=== PATIENT | male | born 1995 | race Caucasian/White ===

== ENCOUNTER → 2016-03-01 | Outpatient (CLI) | payer OTHER ==
[~2016-03-01] MED LIST: HYDR-5688 PO
--- NOTE | 2016-03-02 07:27 | DIAGNOSTIC IMAGING REPORT ---
LEFT WRIST W/NAVICULAR MIN 3 VIEWS CLINICAL HISTORY: LEFT WRIST PAIN COMPARISON: 01/20/2016 DISCUSSION: Is a healing nondisplaced distal radial fracture. There is a tiny chip fracture arising from the ulnar styloid. There is mild disuse osteopenia. IMPRESSION: No change in alignment of the healing nondisplaced distal radial fracture. Ulnar styloid chip fracture, also unchanged in alignment. Disuse osteopenia. Electronically signed by: Loy Alas M.D. 03/02/2016 7:25 AM Dictated Date/Time: 03/02/2016 7:24 AM
== END | disposition home or self-care (01) ==
LOC: C.RDSM 13:45
PROVIDERS: ATTEND Physical Medicine & Rehabilitation Sports Medicine
DX: R52 Pain, unspecified (principal)

== ENCOUNTER 2016-12-02 12:19 | Emergency (ER) | payer OTHER ==
[~2016-12-02] VITALS: Ht 175.3 cm; Wt 70.5 kg
[2016-12-02 12:21] VITALS: TEMP 36.9; Ht 175.3 cm; Wt 70.5 kg
--- NOTE | 2016-12-02 13:30 | DIAGNOSTIC IMAGING REPORT ---
L KNEE 3 VIEWS CLINICAL HISTORY: Left knee injury. COMPARISON: None FINDINGS: Alignment of the left knee is anatomic. Joint spaces are preserved. There is no fracture or joint effusion. No osseous lesion is identified. IMPRESSION: Unremarkable left knee radiographs. Electronically signed by: Ghanshyam Jenkins M.D. 12/02/2016 1:29 PM Dictated Date/Time: 12/02/2016 1:29 PM
--- NOTE | 2016-12-02 13:58 | EMERGENCY ROOM VISIT NOTE ---
ED Visit Note First contact with patient: 12:27 CHIEF COMPLAINT: knee pain HISTORY OF PRESENT ILLNESS: This 21-year-old male patient presents to the emergency department ambulatory after sustaining an injury to the left knee yesterday while playing basketball. The patient states that he twisted the knee while playing basketball yesterday. He reports pain on the medial aspect of the knee. He has been using ice and ibuprofen without relief. He states there was no direct trauma to the knee itself. He rates his discomfort an 8/10 and states this is worse with movement of the knee or weightbearing. He is unable to fully straighten the knee. He denies any history of previous knee injuries. No numbness or tingling. No previous injuries to this knee. No ankle, foot or hip pain. REVIEW OF SYSTEMS: A 6 system review of systems was completed with positives and pertinent negatives listed in the HPI. ALLERGIES: No known drug allergies MEDICATIONS: No chronic medications PMH: No significant past medical history. SOCIAL HISTORY: Patient is a [employer] student. He lives with roommates. Nonsmoker, admits to occasional alcohol use. PHYSICAL EXAM: Vital Signs: Reviewed Nurse's notes, vital signs stable. GENERAL : This is a 21-year-old male, no acute distress, but appears in pain, well- developed, well-nourished. MENTAL STATUS: Alert, oriented to person place and time, and cooperative. MUSCULOSKELETAL: The left knee is not swollen. There is no ecchymosis. There is no joint effusion present. The patient is tender lung the medial aspect of the knee. The patella does not subluxate. Range of motion is full, but painful. Strength of the quads and hamstrings is 5/5. Jeremiah's is negative. Honorio's and Anterior Drawer tests are negative. There is no laxity with varus and valgus stressing. The foot and toes are warm and well-perfused. Dorsalis pedis pulse 2+. Sensation to pain and light touch is intact. Capillary refill less than 2 seconds. RADIOGRAPHIC STUDIES: L KNEE 3 VIEWS CLINICAL HISTORY: Left knee injury. COMPARISON: None FINDINGS: Alignment of the left knee is anatomic. Joint spaces are preserved. There is no fracture or joint effusion. No osseous lesion is identified. IMPRESSION: Unremarkable left knee radiographs. EMERGENCY DEPARTMENT COURSE: I examined the patient. X-rays of the left knee were reviewed by myself and read by radiology and reveal no acute findings. The patient was placed in an Dru wrap under my direction and the position was satisfactory. The patient was instructed on the use of crutches. He was given information for orthopedic follow-up. Conservative measures were discussed with the patient. He verbalized understanding of my assessment and treatment plan. The patient was discharged home in good condition. Medication reconciliation: I attest that I have personally reviewed the patient 's current medication list. Blood Pressure Screening: Patient was found to have a slightly elevated blood pressure due to circumstances. I do not believe that the patient requires hypertension monitoring. DIAGNOSIS: Left knee injury Current/Historical Medications No Active Prescriptions or Reported Meds Allergies Coded Allergies: No Known Allergies (Unverified , 12/02/16) Vital Signs Date Time Temp Pulse Resp B/P (MAP) Pulse Ox O2 Delivery O2 Flow Rate FiO2 12/02/16 14:16 84 20 129/60 99 12/02/16 12:21 36.9 87 20 144/64 99 Room Air Departure Information Impression Primary Impression: Left knee injury Dispostion Home / Self-Care Condition GOOD Prescriptions No Active Prescriptions or Reported Meds Referrals [facility] (PCP) Sid Rosen MD Patient Instructions My [facility] Additional Instructions You have been treated in the Emergency Department for Knee Pain. For pain control, you can use the following [id number] medicines (if >12 yo): - Regular strength (325mg/tab) Tylenol (acetaminophen) 2 tabs every 4-6 hours as needed. Do not exceed 12 tablets in a 24 hour period. Avoid taking more than 4 grams (4000 mg) of Tylenol per day. This includes any other sources of acetaminophen you may take on a regular basis. - Regular strength (200 mg/tab) Advil (ibuprofen) 1-2 tabs every 4-6 hours as needed. Do not exceed a dose of 3200 mg per day. If this is a recent injury (<24 hrs), ice can be applied to the area of pain for the first 3 days to help decrease pain and inflammation. Ice massages can be performed by freezing water in a paper cup, peeling back the cup to expose the ice and then massaging over the affected area. You have been provided the number for an Orthopaedic Surgeon. You should call this number as soon as possible to establish a follow-up visit from today's Emergency Department visit. Wear the Dru wrap and use the crutches to keep all weight off the knee until follow-up with orthopedics. Return to the Emergency Department if your current symptoms worsen despite treatment course outlined above. Problem Qualifiers Primary Impression: Left knee injury Encounter type: initial encounter Qualified Codes: S89.92XA - Unspecified injury of left lower leg, initial encounter
[2016-12-02 14:16] VITALS: BP 129/60; PULSE 84; O2SAT 99
== END 2016-12-02 14:18 | disposition home or self-care (01) ==
LOC: C.EDB 12:20 → C.EDD 14:18
DX: S89.92XA Unspecified injury of left lower leg, initial encounter (principal); X50.1XXA Overexertion from prolonged static or awkward postures, initial encounter; Y93.67 Activity, basketball